=== PATIENT | female | born 1980 | race American Indian/Alaskan Native ===

== ENCOUNTER 2020-02-24 05:37 | Observation (INO) | payer MEDICAID ==
--- NOTE | 2020-02-23 11:11 | History and Physical Report ---
History of Present Illness Date of examination: 02/22/20 History of present illness: Patient is admitted for placement of a cervical cerclage Menstrual History Regularity: regular Menses every: 28 days Duration: 5 LMP: 11/20/2019 LMP reliability: definite LMP character: normal test type: urine test Date: 01/06/2020 BC at conception: none Planned ? no EDC Calculations LMP: 08/26/2020 EDC Confirmation: 08/26/2020 Past History : 3 Term Births: 0 Premature Births: 0 Living Children: 0 Para: 0 Mult. Births: 0 Prev : 0 Prev. attempt? 0 Aborta: 2 Elect. Ab: 1 Spont. Ab: 1 # 1 Delivery date: 1998 Delivery type: EAB # 2 Delivery date: 2018 Weeks Gestation: 18 Delivery type: SAB Comments: SAB d/t incomp cervix Risk Factors: Smoked Tobacco Use: Never smoker Smokeless Tobacco Use: Never Passive smoke exposure: no Drug use: no HIV high-risk behavior: no Alcohol use: no Exercise: no Seatbelt use: 100 % Past Medical History: Negative Past Medical History Past Surgical History: D&C Past Medical History Surgery (Non-lot technician): Negative Past Surgical History Abnormal PAP: negative Family Hx: htn DM colorectal CA - MGM Infection History Hx of STD: none HIV Risk Eval: no Hepatitis B Risk Eval: low risk Personal hx. of genital herpes: no Partner hx. of genital herpes: no Rash, Viral, or Febrile illness since last LMP? no Genetic History ADVANCED MATERNAL AGE Congenital Heart Defect: Mom: no Dad: no Fabi Disease: Mom: no Dad: no Thalassemia Mom: no Dad: no Neural Tube Defect Mom: no Dad: no Down's Syndrome Mom: no Dad: no Miles-Sachs Mom: no Dad: no Sickle Cell Disease/Trait Mom: yes Dad: no Comments: pt's brother + SCT Hemophilia Mom: no Dad: no Muscular Dystrophy Mom: no Dad: no Cystic Fibrosis Mom: no Dad: no Racheal Chorea Mom: no Dad: no Mental Retardation Mom: no Dad: no Fragile X Mom: no Dad: no Other Genetic/Chromosomal Disorder Mom: no Dad: no Child w/other defect Mom: no Dad: no Enviromental Exposures Xray Exposure: no Medication, drug, or alcohol use since LMP: no Chemical/Other Exposure: no Exposure to Cat Liter: no Hx of Parvovirus (Fifth Disease): no Occupational Exposure to Children: none Current Allergies (reviewed today): No known allergies Past History Past Medical History: other (SEE HPI) Past Surgical History: D&C, other (SEE HPI) TALLIER History: other (SEE HPI) Family/Genetic History: other (SEE HPI) Social history: full code, other (SEE HPI) - Obstetrical History Expected Date of Delivery: 08/26/20 Actual Gestation: 13 Week(s) 5 Day(s) : 3 Para: 0 Hx # Term Pregnancies: 0 Number of Pregnancies: 0 Spontaneous Abortions: 1 Induced : 1 Number of Living Children: 0 Medications and Allergies Allergies Allergy/AdvReac Type Severity Reaction Status Date / Time No Known Allergies Allergy Unverified 02/24/20 00:46 Home Medications Medication Instructions Recorded Confirmed Last Taken Type RX: No Known Home Medications [No 02/24/20 02/24/20 Unknown History Reported Home Medications] - Physical Exam Breasts: Positive: deferred Cardiovascular: Regular rate Lungs: Positive: Normal air movement Abdomen: Positive: normal appearance Genitourinary (Female): Positive: normal external genitalia Vagina: Positive: normal moisture Uterus: Positive: enlarged Adnexa: both: normal Anus/Rectum: Positive: normal perianal skin, heme negative. Negative: rectal mass, hemorrhoids Extremities: - Obstetrical FHR: auscultation normal Results Result Diagrams: 02/24/20 06:09 All other labs normal. Assessment and Plan - Patient Problems (1) Incompetence of cervix Current Visit: No Status: Acute Plan to address problem: Patient is being admitted for placement of a cervical cerclage. Patient said the risks of the surgery include bleeding possible rupture of membranes which could lead to possible premature delivery and possible damage to bowel or bladder. Patient understands the procedures being performed to help strengthen her cervix to increase the chance of having term but is not guaranteed that her will go to term and may not prevent premature delivery. (2) AMA (advanced maternal age) multigravida 35+ Current Visit: No Status: Acute Qualifiers: Trimester: first trimester Qualified Code(s): O09.521 - Supervision of elderly multigravida, first trimester
[2020-02-24 07:43] LABS: Basophils % (Auto) 0.2 % (0.0-1.8); Eosinophils % (Auto) 0.6 % (0.0-4.3); Hematocrit 35.7 % (30.3-42.9); Hemoglobin 12.7 gm/dl (10.1-14.3); Lymphocytes # (Auto) 1.3 K/mm3 (1.2-5.4); Lymphocytes % (Auto) 16.6 % (13.4-35.0); Mean Corpuscular HGB Conc 36 % (30-34); Mean Corpuscular Volume 92 fl (79-97); Monocytes # (Auto) 0.6 K/mm3 (0.0-0.8); Monocytes % (Auto) 7.4 % (0.0-7.3); Platelet Count 226 K/mm3 (140-440); Red Blood Count 3.87 M/mm3 (3.65-5.03); Red Cell Distribution Width 13.9 % (13.2-15.2)
[2020-02-24] MEDS ORDERED: METOCLOPRAMIDE 10 MG/2 ML INJ IV SCH (08:00)
[2020-02-24] MEDS ORDERED: BICITRA ORAL LIQD 30ML PO ONE (08:00)
[2020-02-24] MEDS ORDERED: METOCLOPRAMIDE 10 MG/2 ML INJ ONE (08:13)
[2020-02-24] MEDS ORDERED: BICITRA ORAL LIQD 30ML ONE (08:13)
[2020-02-24] MEDS ORDERED: BUPIVACAINE /DEX-WATER 0.75% (2 ML) AMPULE INFILTRATI ONE (08:13)
--- NOTE | 2020-02-24 08:51 | Anesthesia Consultation ---
Anesthesia Consult and Med Hx Date of service: 02/24/20 - Airway Anesthetic Teeth Evaluation: Good ROM Head & Neck: Adequate Mental/Hyoid Distance: Adequate Mallampati Class: Class II Intubation Access Assessment: Good - Pulmonary Exam CTA: Yes - Cardiac Exam Cardiac Exam: RRR - Pre-Operative Health Status ASA Pre-Surgery Classification: ASA2 Proposed Anesthetic Plan: Spinal - Pulmonary Hx Smoking: No Hx Asthma: No Hx Sleep Apnea: No - Cardiovascular System Hx Hypertension: No - Central Nervous System Hx Seizures: No Hx Psychiatric Problems: No - Gastrointestinal Hx Gastroesophageal Reflux Disease: No - Endocrine Hx Renal Disease: No Hx Hypothyroidism: No Hx Hyperthyroidism: No - Hematic Hx Anemia: No Hx Sickle Cell Disease: No - Other Systems Hx Alcohol Use: No
--- NOTE | 2020-02-24 08:53 | Progress Note ---
Spinal Anesthesia Block - Spinal Anesthesia Block Start Time: 08:29 Stop Time: 08:37 Performed by:: MAGDA MALHOTRA () Procedure: Spinal anesthesia block is being performed for [cerclage]. H&P, labs have been reviewed. Patient's questions and concerns have been answered. Informed consent has been performed. Timeout has was performed. Patient in sitting position on side of bed. Sterile prep and drape was performed. 3 mL 1% lidocaine skin wheal at L [3]-L [4]. Needle introducer advanced. 25-gauge spinal needle advanced, [+] CSF [-] blood. [Marcaine 7.5mg] Spinal dose was given. All needles removed. Patient tolerated procedure well.
[2020-02-24] MEDS ORDERED: PHENYLEPHRINE/NS 1,000 MCG/10 ML SYRINGE (OR USE) IV ONE (09:00)
--- NOTE | 2020-02-24 09:49 | Operative Report ---
Operative Report Operative Report: Date of procedure: Pre-operative diagnosis: Incompetent cervix Post-operative diagnosis: Same Procedure name(s): Mathur cervical cerclage Surgeon: Magan Guerrier MD Side Piece Coverer: Lu Strickland CST Anesthesia: Spinal EBL: Minimal Complications: None Findings: Patient with cervix closed with approximately 3 3 and half centimeters Specimen(s): None Procedure: Patient was brought to the operating room where spinal anesthesia was induced without difficulty. Patient was then placed in candy cane hanging stirrups. Patient was prepped and draped in usual sterile manner. Bladder was emptied with a red rubber catheter. Weighted speculum was placed in her vagina. The doctor's assistant retracted the bladder anteriorly. Her cervical exam as noted above. Starting at 1:00 the 5 mm Mersilene stitch of the cerclage was placed in pursestring fashion. With the knot tied at 1:00 under moderate pressure with several throws in the knot. There was no evidence of rupture of amniotic sac. No evidence of adjacent organ injury was seen. The cervix was was inspected and found to be hemostatic. All instruments were removed. Patient was informed of the number of sutures 1 and the location of the knot at 1:00. The patient tolerated procedure well and was accompanied to recovery room in good condition. Instrument count correct x2
[2020-02-24] MEDS ORDERED: ACETAMINOPHEN 325 MG TAB PO PRN (10:00)
[2020-02-24 12:20] VITALS: BP 103/58
== END 2020-02-24 13:30 | disposition home or self-care (01) ==
LOC: TRG 05:37 → LDOR 05:37 → APU 05:38 → TRG 09:04 → APU 10:18 → EDSTATUS 11:30
PROVIDERS: ADMIT Obstetrics & Gynecology; ATTEND Obstetrics & Gynecology
DX: O34.31 Maternal care for cervical incompetence, first trimester (principal); O09.521 Supervision of elderly multigravida, first trimester; Z98.890 Other specified postprocedural states; Z3A.13 13 weeks gestation of pregnancy
CPT/HCPCS: 36415; 59025; 59320; 85025; 86850; 86900; 86901; 96360; G0378; J2370; J2765